=== PATIENT | male | born 1955 | race Caucasian/White ===

== ENCOUNTER → 2021-03-23 | Outpatient (CLI) | payer MEDICARE ==
[~2021-03-23] MED LIST: PROHANCE 279.3MG/ML 15ML VIAL As Ordered ONE
--- NOTE | 2021-03-23 15:38 | REP ---
INDICATION: ELEVATED PSA / LABS 1ST. COMPARISON: None. TECHNIQUE: Using a phased array surface coil, small zodcv-iw-zwtm imaging was acquired using T2 weighted scans in the axial, coronal, and sagittal imaging planes. Small qnwdn-ax-snft diffusion-weighted sequences are acquired. Small bmkib-kp-movs axial T1 weighted scans are acquired dynamically before and after the intravenous administration of 15 mL of ProHance. Imaging is reviewed using the [employer] computer-aided detection system. FINDINGS: The osseous structures of the pelvis demonstrate no definite bone lesion. There is no adenopathy. There is no free fluid. There is sigmoid diverticulosis. The prostate gland measures 5.2 x 4.2 x 4.2 cm for total volume of 47.76 cc. There are no areas of arterial phase enhancement within the prostate. There are 2 areas identified in the prostate for potential MR/ultrasound fusion biopsy. In the right transitional zone extending from the base to the apex there is an area of heterogeneous relatively low signal on T2 weighted images which is fairly well-circumscribed. This area measures 2.5 x 2.0 x 2.8 cm for total volume of 7.29 cc. Overall level of suspicion is 2/5 with clinically significant cancer on likely to be present. Secondly in the left transitional zone extending from the base to the apex there is an ill defined area of relatively low signal on T2 which measures approximately 2.4 x 1.0 x 2.4 cm, total volume 3.37 cc. Overall level of suspicion is 2/5 with a low probability of clinically significant cancer. In the peripheral zone bilaterally there are scattered areas of ill-defined low signal on T2 likely representing areas of prostatitis. The seminal vesicles are symmetrical. IMPRESSION: No definite suspicious finding. Two areas are identified in the transitional zone for potential MR ultrasound fusion biopsy, with low probability of clinically significant cancer present. Mild scattered ill-defined areas of T2 signal hypointensity throughout the peripheral zone most likely represent areas of prostatitis. <Electronically signed by Luis Boucher > 03/23/21 1172
[2021-03-23 16:03] LABS: BLOOD UREA NITROGEN 16 MG/DL (7-18); CALCIUM LEVEL 8.7 MG/DL (8.8-10.2); CARBON DIOXIDE LEVEL 29 MEQ/L (21-32); CHLORIDE LEVEL 110 MEQ/L (98-107); GLOMERULAR FILTRATION RATE > 60.0 (>49); GLUCOSE, FASTING 91 MG/DL (70-100); POTASSIUM SERUM 4.5 MEQ/L (3.5-5.1); SODIUM LEVEL 143 MEQ/L (136-145)
== END ==
LOC: M LAB 12:43 → M RAD 12:43
PROVIDERS: ATTEND Physician Assistant
DX: R97.20 Elevated prostate specific antigen [PSA] (principal); N52.9 Male erectile dysfunction, unspecified; R80.9 Proteinuria, unspecified; R31.21 Asymptomatic microscopic hematuria
CPT/HCPCS: 36415; 72197; 80048; A9576

== ENCOUNTER → 2022-01-10 | Outpatient (REF) | payer MEDICARE | LOC: M SFHCDERM 17:23 | PROVIDERS: ATTEND Nurse Practitioner Family | DX: L57.0 Actinic keratosis (principal) ==

== ENCOUNTER → 2022-06-15 | Outpatient (REF) | payer MEDICARE | LOC: M SFHCDERM 16:55 | PROVIDERS: ATTEND Nurse Practitioner Family | DX: C44.519 Basal cell carcinoma of skin of other part of trunk (principal); L82.1 Other seborrheic keratosis ==

== ENCOUNTER → 2022-11-28 | Outpatient (CLI) | payer MEDICARE | LOC: M RAD 12:13 | PROVIDERS: ATTEND Specialist | DX: R97.20 Elevated prostate specific antigen [PSA] (principal) | CPT/HCPCS: 72197; A9576 ==

== ENCOUNTER → 2023-07-17 | Outpatient (CLI) | payer MEDICARE | LOC: M RAD 12:45 | PROVIDERS: ATTEND Physician Assistant | DX: R97.20 Elevated prostate specific antigen [PSA] (principal) | CPT/HCPCS: 72197; A9576 ==

== ENCOUNTER → 2024-02-21 | Outpatient (REF) | payer MEDICARE | LOC: M SFHCDERM 16:08 | PROVIDERS: ATTEND Nurse Practitioner Family | DX: C44.329 Squamous cell carcinoma of skin of other parts of face (principal); L85.8 Other specified epidermal thickening ==

== ENCOUNTER → 2024-05-20 | Outpatient (CLI) | payer MEDICARE | LOC: M ONCR 09:29 | PROVIDERS: ATTEND General Practice | DX: C44.320 Squamous cell carcinoma of skin of unspecified parts of face (principal); C61 Malignant neoplasm of prostate ==